=== PATIENT | male | born 1965 | race Caucasian/White ===

== ENCOUNTER 2016-11-02 17:40 | Emergency (ER) | payer BC ==
--- NOTE | 2016-11-02 20:28 | UC ---
Throat Pain/Nasal Abelardo HPI - HPI Summary HPI Summary: sore throat for 3-4 days no fever some congestion, kids at home or not sick - History of Current Complaint Chief Complaint: UCRespiratory Stated Complaint: SORE THROAT Time Seen by Provider: 11/02/16 20:22 Hx Obtained From: Patient Onset/Duration: Gradual Onset, Lasting Days - 3-4 days Severity: Moderate Pain Intensity: 5 Pain Scale Used: 0-10 Numeric Cough: None Associated Signs & Symptoms: Positive: Negative - Allergies/Home Medications Allergies/Adverse Reactions: Allergies Allergy/AdvReac Type Severity Reaction Status Date / Time Meperidine [From Demerol HCl] Allergy Dizziness Verified 11/02/16 20:36 PMH/Surg Hx/FS Hx/Imm Hx Previously Healthy: No Endocrine History Of: Denies: Diabetes, Thyroid Disease Cardiovascular History Of: Denies: Cardiac Disorders, Hypertension Respiratory History Of: Denies: Asthma GI/ History Of: Reports: Ulcer Psychological History Of: Reports: Depression - Surgical History Surgical History: Yes Surgery Procedure, Year, and Place: broken femur, appy - Family History Known Family History: Positive: None Family History: denies cardiovascular issues in family lineage - Social History Occupation: Employed Full-time Lives: With Family Alcohol Use: None Substance Use Type: None Review of Systems Constitutional: Chills, Fatigue Skin: Negative Eyes: Negative ENT: Sore Throat Respiratory: Negative Cardiovascular: Negative Gastrointestinal: Negative Genitourinary: Negative Motor: Negative Neurovascular: Negative Musculoskeletal: Negative Neurological: Negative Psychological: Negative All Other Systems Reviewed And Are Negative: Yes Physical Exam Triage Information Reviewed: Yes Appearance: Well-Appearing, No Pain Distress, Well-Nourished Vital Signs Reviewed: Yes Eye Exam: Normal Eyes: Positive: Conjunctiva Clear ENT Exam: Other ENT: Positive: Hearing grossly normal, Pharyngeal erythema, TMs normal. Negative: Nasal congestion, Nasal drainage, Tonsillar swelling, Tonsillar exudate, Trismus, Muffled/hoarse voice Dental Exam: Normal Neck exam: Normal Neck: Positive: Supple, Nontender, Enlarged Nodes @ - anterior cervical Respiratory Exam: Normal Respiratory: Positive: Chest non-tender, Lungs clear, Normal breath sounds, No respiratory distress, No accessory muscle use Cardiovascular Exam: Normal Cardiovascular: Positive: RRR, No Murmur, Pulses Normal, Brisk Capillary Refill Musculoskeletal Exam: Normal Musculoskeletal: Positive: Strength Intact, ROM Intact, No Edema Neurological Exam: Normal Neurological: Positive: Alert, Muscle Tone Normal Psychological Exam: Normal Skin Exam: Normal Diagnostics - Laboratory Diagnostic Studies Completed/Ordered: RST (+) Throat Pain/Nasal Course/Dx - Course Assessment/Plan: Amoxicillin, ibuprofen, increase fluids, rest, increase fluids , follow with pcp prn - Differential Dx/Diagnosis Differential Diagnosis/HQI/PQRI: Laryngitis, Peritonsillar Abscess, Pharyngitis , Sinusitis, Tonsillitis Provider Diagnoses: Strep pharyngitis Discharge - Discharge Plan Condition: Stable Disposition: HOME Prescriptions: Amoxicillin CAP* 500 mg PO Q12H #18 cap Patient Education Materials: Ibuprofen (By mouth), Amoxicillin (By mouth), Strep Throat (ED) Referrals: Ishan Mandujano DO [Primary Care Provider] - If Needed
[2016-11-02 20:37] VITALS: BP 135/82
[2016-11-02] MEDS ORDERED: Amoxicillin PO (*) 500 MG CAP PO ONE ×2 (20:42)
[2016-11-02] MEDS: Amoxicillin PO (*) 500 MG CAP PO ONE ×2 (20:51→20:57)
== END 2016-11-02 20:53 | disposition home or self-care (01) ==
LOC: UCCORT 17:40
DX: J02.0 Streptococcal pharyngitis (principal); Z88.5 Allergy status to narcotic agent
CPT/HCPCS: 87651; 99202; A9270-GY; G0463

== ENCOUNTER 2016-11-17 17:46 | Emergency (ER) | payer BC ==
[2016-11-17 18:11] VITALS: BP 124/76
--- NOTE | 2016-11-17 18:33 | UC ---
Throat Pain/Nasal Abelardo HPI - HPI Summary HPI Summary: Dx with strep 11/02/16, took 10 days of amox and threw out his toothbrush group home through. [place] much better but ST never completely went away, now ST has gotten much better in the last couple days, starting to feel achy. - History of Current Complaint Chief Complaint: UCRespiratory Stated Complaint: SORE THROAT Time Seen by Provider: 11/17/16 18:14 Hx Obtained From: Patient Onset/Duration: Gradual Onset, Lasting Days Severity: Mild Cough: None Associated Signs & Symptoms: Negative: Nasal Discharge, Fever, Vomiting - Allergies/Home Medications Allergies/Adverse Reactions: Allergies Allergy/AdvReac Type Severity Reaction Status Date / Time Meperidine [From Demerol HCl] Allergy Dizziness Verified 11/17/16 18:05 PMH/Surg Hx/FS Hx/Imm Hx Endocrine History Of: Denies: Diabetes, Thyroid Disease Cardiovascular History Of: Denies: Cardiac Disorders, Hypertension Respiratory History Of: Denies: Asthma GI/ History Of: Reports: Ulcer Psychological History Of: Reports: Depression - Surgical History Surgical History: Yes Surgery Procedure, Year, and Place: broken femur, appy - Family History Known Family History: Positive: None Family History: denies cardiovascular issues in family lineage - Social History Lives: With Family Alcohol Use: None Substance Use Type: None Smoking Status (MU): Never Smoked Tobacco - Immunization History Most Recent Influenza Vaccination: FALL 2015 Review of Systems Constitutional: Negative Skin: Negative Eyes: Negative ENT: Sore Throat Respiratory: Negative Cardiovascular: Negative Gastrointestinal: Negative Genitourinary: Negative Motor: Negative Neurovascular: Negative Musculoskeletal: Negative Neurological: Negative Psychological: Negative All Other Systems Reviewed And Are Negative: Yes Physical Exam Triage Information Reviewed: Yes Appearance: Well-Appearing, No Pain Distress, Well-Nourished Vital Signs: Initial Vital Signs Temp 98.9 F 11/17/16 18:06 Pulse 77 11/17/16 18:06 Resp 16 11/17/16 18:06 BP 124/76 11/17/16 18:06 Pulse Ox 98 11/17/16 18:06 Vital Signs Reviewed: Yes Eye Exam: Normal Eyes: Positive: Conjunctiva Clear ENT: Positive: Hearing grossly normal, Pharyngeal erythema, TMs normal, Tonsillar exudate - minimal, L side Dental Exam: Normal Neck exam: Normal Neck: Positive: Supple, Nontender, No Lymphadenopathy Respiratory Exam: Normal Respiratory: Positive: Chest non-tender, Lungs clear, Normal breath sounds, No respiratory distress, No accessory muscle use Cardiovascular Exam: Normal Cardiovascular: Positive: RRR, No Murmur Musculoskeletal Exam: Normal Neurological Exam: Normal Psychological Exam: Normal Skin Exam: Normal Throat Pain/Nasal Course/Dx - Differential Dx/Diagnosis Provider Diagnoses: Strep throat Discharge - Discharge Plan Condition: Stable Disposition: HOME Prescriptions: Cefdinir 600 mg PO DAILY #20 cap Patient Education Materials: Strep Throat (ED) Referrals: Ishan Mandujano DO [Primary Care Provider] - Additional Instructions: Your symptoms should resolve completely well before you are done with antibiotics. As long as you are feeling better, no further care is needed. If you have new or persistent symptoms, please see your primary care provider.
== END 2016-11-17 18:42 | disposition home or self-care (01) ==
LOC: UCCORT 17:46
DX: J02.0 Streptococcal pharyngitis (principal)
CPT/HCPCS: 87651; 99212; G0463

== ENCOUNTER 2017-06-01 19:46 | Emergency (ER) | payer BC ==
[2017-06-01 20:05] VITALS: BP 120/79
--- NOTE | 2017-06-10 19:37 | UC ---
Throat Pain/Nasal Abelardo HPI - HPI Summary HPI Summary: 51 YEAR OLD MALE PRESENTS WITH SORE THROAT, FEVER AND CHILLS SINCE LAST NIGHT. - History of Current Complaint Chief Complaint: UCGeneralIllness Stated Complaint: SORE THROAT Time Seen by Provider: 06/01/17 19:54 Hx Obtained From: Patient Onset/Duration: Sudden Onset Severity: Moderate Pain Intensity: 4 Pain Scale Used: 0-10 Numeric - 6 Cough: Nonproductive Associated Signs & Symptoms: Positive: Sinus Discomfort, Nasal Discharge Related History: Seasonal Allergies - Allergies/Home Medications Allergies/Adverse Reactions: Allergies Allergy/AdvReac Type Severity Reaction Status Date / Time Meperidine [From Demerol HCl] Allergy Dizziness Verified 06/01/17 20:00 PMH/Surg Hx/FS Hx/Imm Hx Previously Healthy: Yes - Surgical History Surgical History: Yes Surgery Procedure, Year, and Place: broken femur, appy - Family History Known Family History: Positive: None Family History: denies cardiovascular issues in family lineage - Social History Alcohol Use: Occasionally Substance Use Type: None Smoking Status (MU): Never Smoked Tobacco - Immunization History Most Recent Influenza Vaccination: FALL 2015 Review of Systems Constitutional: Negative Skin: Negative Eyes: Negative ENT: Sore Throat, Sinus Congestion, Sinus Pain/Tenderness Respiratory: Negative Cardiovascular: Negative Gastrointestinal: Negative Genitourinary: Negative Motor: Negative Neurovascular: Negative Musculoskeletal: Negative Neurological: Negative Psychological: Negative All Other Systems Reviewed And Are Negative: Yes Physical Exam Triage Information Reviewed: Yes Vital Signs: Initial Vital Signs Temp 38.0 C 06/01/17 20:01 Pulse 80 06/01/17 20:01 Resp 16 06/01/17 20:01 BP 120/79 06/01/17 20:01 Pulse Ox 97 06/01/17 20:01 Vital Signs Reviewed: Yes Eye Exam: Normal ENT: Positive: Pharyngeal erythema Dental Exam: Normal Neck exam: Normal Neck: Positive: 1 Respiratory Exam: Normal Cardiovascular Exam: Normal Abdominal Exam: Normal Musculoskeletal Exam: Normal Neurological Exam: Normal Psychological Exam: Normal Skin Exam: Normal Throat Pain/Nasal Course/Dx - Differential Dx/Diagnosis Provider Diagnoses: PHARYNGITIS Discharge - Discharge Plan Condition: Stable Disposition: HOME Prescriptions: Amoxicillin/Clavulanate TAB* [Augmentin TAB 875*] 875 mg PO BID #20 tab LoraTADine TAB(NF) [Claritin 10 MG TAB(NF)] 10 mg PO DAILY #30 tab Magic M W2 Toan/Maal/Nyst/Lido* 15 ml SWISH SPIT QID #120 ml Patient Education Materials: Pharyngitis (ED) Referrals: Ishan Mandujano DO [Primary Care Provider] -
== END 2017-06-01 20:26 | disposition home or self-care (01) ==
LOC: UCCORT 19:46
DX: J02.9 Acute pharyngitis, unspecified (principal); R09.81 Nasal congestion; R50.9 Fever, unspecified; Z88.5 Allergy status to narcotic agent
CPT/HCPCS: 87651; 99212; G0463

== ENCOUNTER 2018-07-07 13:17 | Emergency (ER) | payer BC ==
[2018-07-07 14:50] VITALS: BP 159/83
--- NOTE | 2018-07-07 15:21 | UC ---
Hip/Pelvis Pain - HPI Summary HPI Summary: pain in the left hip for the last several days, pain has persisted and radiates down the leg . s/p rodding of the femur 20 years ago for a fracture, hong subsequently removed. - History Of Current Complaint Chief Complaint: UCLowerExtremity Stated Complaint: PERSONAL Time Seen by Provider: 07/07/18 14:46 Onset/Duration: Gradual Onset Timing: Constant Severity Currently: Moderate Pain Intensity: 7 Location: Radiates To: - left lower leg Character Of Pain: Throbbing Aggravating Factor(s): Weight Bearing Alleviating Factor(s): Heat - Allergies/Home Medications Allergies/Adverse Reactions: Allergies Allergy/AdvReac Type Severity Reaction Status Date / Time MS Meperidine Allergy Dizziness Verified 06/01/17 20:00 [From Demerol HCl] PMH/Surg Hx/FS Hx/Imm Hx Previously Healthy: Yes - Surgical History Surgical History: Yes Surgery Procedure, Year, and Place: broken femur, appy - Family History Known Family History: Positive: None Family History: denies cardiovascular issues in family lineage - Social History Alcohol Use: Occasionally Substance Use Type: None Smoking Status (MU): Never Smoked Tobacco - Immunization History Most Recent Influenza Vaccination: FALL 2015 Review of Systems Constitutional: Negative Skin: Negative Eyes: Negative ENT: Negative Respiratory: Negative Cardiovascular: Negative Gastrointestinal: Negative Genitourinary: Negative Motor: Negative Musculoskeletal: Decreased ROM Neurological: Negative Psychological: Negative Is Patient Immunocompromised?: No All Other Systems Reviewed And Are Negative: Yes Physical Exam Triage Information Reviewed: Yes Appearance: Well-Appearing Vital Signs: Initial Vital Signs Temp 37.3 C 07/07/18 14:34 Pulse 76 07/07/18 14:34 Resp 20 07/07/18 14:34 BP 159/83 07/07/18 14:34 Pulse Ox 100 07/07/18 14:34 Vital Signs Reviewed: Yes ENT Exam: Normal Neck exam: Normal Abdominal Exam: Normal Musculoskeletal: Positive: Other: - limitation of internal rotation, antalgic gait , well healed scar Hip Injury Course/Dx - Differential Dx/Diagnosis Provider Diagnoses: 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
--- NOTE | 2018-07-07 15:25 | RAD ---
Indication: 3 days LEFT hip pain with no recent preceding injury. Post remote LEFT femur intramedullary rodding with subsequent removal. Comparison: No relevant prior exams [place] [facility] [place]. Technique: Upright AP pelvis and AP and frog-leg lateral views LEFT hip. Report: 40 degrees LEFT inferolateral pelvic tilt. Normally located LEFT hip. No evidence for LEFT femoral neck or pelvic fracture. Moderate superior joint space narrowing at the LEFT hip with proportional osteophytosis and mild subchondral sclerosis. Significant partial loss of femoral head sphericity. Stigmata of previous IM hong at the LEFT femur. Lumbar sacral spine degenerative spondylosis with mild levoscoliosis. IMPRESSION: #. Negative for fracture. #. Moderately severe osteoarthritis of the LEFT hip.
== END 2018-07-07 15:51 | disposition home or self-care (01) ==
LOC: UCCORT 13:17
DX: M16.12 Unilateral primary osteoarthritis, left hip (principal); Z88.8 Allergy status to other drugs, medicaments and biological substances
CPT/HCPCS: 81003; 99211; G0463